=== PATIENT | male | born 1935 | race Caucasian/White ===

== ENCOUNTER 2016-09-05 12:21 | Inpatient (IN) | payer MEDICARE ==
[~2016-09-05] VITALS: Ht 185.4 cm; Wt 159.2 kg
[~2016-09-05 12:21] MED LIST: ALBU18HF INH; ARFO15VI NEB; ASCO250T2 PO; CHOL200024 PO; HYDR473S51 PO; OXYC-223 PO; PREG75CA PO; TIOT18CA INH; VIT1CAPS9 PO; VITA1TAB19 PO; albuterol NEB; magnesium PO; potassium PO; zinc PO
[2016-09-05] MEDS ORDERED: SODIUM CHLORIDE FLUSH 10ML SYR IVF ONE (14:30)
[2016-09-05] MEDS ORDERED: SODIUM CHLORIDE 0.9% 1,000ML IVBOLUS ONE (14:30)
[2016-09-05] MEDS ORDERED: ALBUTEROL/IPRATROPIUM 2.5MG/0.5MG, 3 ML NPPB ONE (14:30)
[2016-09-05] MEDS ORDERED: ALBUTEROL/IPRATROPIUM 2.5MG/0.5MG, 3 ML ONE (14:42)
[2016-09-05 14:51] LABS: ASPARTATE AMINO TRANSFERASE 57 U/L (15-37); BLOOD UREA NITROGEN 31 mg/dL (7-18)
[2016-09-05 14:57] LABS: IS PT STATUS REG ER OR PRE ER? YES
[2016-09-05] MEDS ORDERED: ASPIRIN 81 MG TABLET CHEW ONE (15:24)
[2016-09-05] MEDS ORDERED: ASPIRIN 81 MG TABLET CHEW PO ONE (15:30)
[2016-09-05] MEDS ORDERED: ALBU0.63 NEB (15:37)
[2016-09-05] MEDS ORDERED: DULO30CA2 PO (15:37)
[2016-09-05] MEDS ORDERED: POTA8CAP PO (15:40)
[2016-09-05] MEDS ORDERED: MAGN400T36 PO (15:40)
[2016-09-05] MEDS ORDERED: ALBUTEROL SULFATE 2.5 MG/3 ML NPPB SCH (16:30)
[2016-09-05] MEDS ORDERED: DOCUSATE 100 MG CAPSULE PO PRN (16:30)
[2016-09-05] MEDS ORDERED: TEMPLATE NON-FORMULARY MED. (Albuterol Sulfate (Albuterol Sulfate**) 1 VIAL) NEB PRN (16:30)
[2016-09-05] MEDS ORDERED: POLYETHYLENE GLYCOL 17 GM PACKET PO PRN (16:30)
[2016-09-05] MEDS ORDERED: BISACODYL 10 MG SUPP PR PRN (16:30)
[2016-09-05] MEDS ORDERED: MORPHINE SULFATE 4 MG/ML, 1ML IVPush PRN (16:30)
[2016-09-05] MEDS ORDERED: ONDANSETRON 2MG/ML, 2ML IVP PRN (16:30)
[2016-09-05] MEDS ORDERED: ACETAMINOPHEN 325 MG TABLET PO PRN (16:30)
[2016-09-05] MEDS ORDERED: HYDROcodone/APAP 5/325 TABLET PO PRN (16:30)
[2016-09-05] MEDS ORDERED: methylPREDNISolone SOD SUCC 125 MG/2 ML ONE (17:23)
[2016-09-05] MEDS ORDERED: HEPARIN 5,000 UNITS/ML, 1ML ONE (17:23)
[2016-09-05] MEDS ORDERED: CEFTRIAXONE PMX 1GM/50ML 50 ML ONE (17:24)
[2016-09-05] MEDS: methylPREDNISolone SOD SUCC 125 MG/2 ML IVPush SCH (17:31)
[2016-09-05] MEDS: HEPARIN 5,000 UNITS/ML, 1ML SQ SCH (17:31)
[2016-09-05] MEDS: CEFTRIAXONE PMX 1GM/50ML 50 ML IV SCH (17:32)
[2016-09-05] MEDS ORDERED: [UNRECOGNIZED DRUG - REMARK] MC PRN (19:00)
[2016-09-05 19:28] LABS: IS PT STATUS REG ER OR PRE ER? NO
[2016-09-05 20:00] VITALS: BP 153/93
[2016-09-05] MEDS: MAGNESIUM OXIDE 400 MG TABLET PO SCH (20:09)
[2016-09-05] MEDS: SODIUM CHLORIDE 0.9% 1,000 ML IV SCH (20:10)
[2016-09-05] MEDS: ALBUTEROL/IPRATROPIUM 2.5MG/0.5MG, 3 ML NPPB SCH (20:10)
[2016-09-05] MEDS: DOXYCYCLINE 100 MG in DEXTROSE 5% 250 ML IV SCH (20:10)
[2016-09-05] MEDS: POTASSIUM CHLORIDE 8 MEQ TABLET.ER PO SCH (20:10)
[2016-09-05] MEDS ORDERED: ARFORMOTEROL TARTRATE NEB SCH (21:00)
[2016-09-06 01:27] VITALS: BP 155/92
[2016-09-06] MEDS: methylPREDNISolone SOD SUCC 125 MG/2 ML IVPush SCH ×2 (02:02→09:15)
[2016-09-06] MEDS: HEPARIN 5,000 UNITS/ML, 1ML SQ SCH ×3 (02:02→17:23)
[2016-09-06 03:01] LABS: BLOOD UREA NITROGEN 34 mg/dL (7-18)
[2016-09-06 03:05] LABS: ASPARTATE AMINO TRANSFERASE 41 U/L (15-37)
[2016-09-06 03:15] LABS: IS PT STATUS REG ER OR PRE ER? NO
[2016-09-06 06:45] VITALS: BP 189/123
[2016-09-06] MEDS: ALBUTEROL/IPRATROPIUM 2.5MG/0.5MG, 3 ML NPPB SCH ×4 (07:00→20:10)
[2016-09-06 08:30] VITALS: BP 159/101
[2016-09-06] MEDS ORDERED: [UNRECOGNIZED DRUG - OTHER] PO SCH (09:00)
[2016-09-06] MEDS ORDERED: DULOXETINE 30 MG CAPSULE.DR PO SCH (09:00)
[2016-09-06] MEDS ORDERED: IPRATROPIUM 0.5 MG/2.5 ML INHA NPPB SCH (09:00)
[2016-09-06] MEDS: LABETALOL 5MG/ML, 20ML IV PRN (09:12)
[2016-09-06] MEDS: MAGNESIUM OXIDE 400 MG TABLET PO SCH ×2 (10:37→20:38)
[2016-09-06] MEDS: MULTIVITS,STRESS FORMULA 1 TABLET PO SCH (10:37)
[2016-09-06] MEDS: CHOLECALCIFEROL 1,000 UNIT TABLET PO SCH (10:37)
[2016-09-06] MEDS: POTASSIUM CHLORIDE 8 MEQ TABLET.ER PO SCH ×2 (10:38→20:38)
[2016-09-06] MEDS: DOXYCYCLINE 100 MG in DEXTROSE 5% 250 ML IV SCH ×2 (10:42→22:16)
[2016-09-06 12:20] VITALS: BP 147/85
[2016-09-06 12:24] LABS: PATH.CAST-FLAG NOT PRESENT; SPERM-FLAG NOT PRESENT; XTAL-FLAG NOT PRESENT; YLC-FLAG NOT PRESENT
[2016-09-06] MEDS: FLUTICASONE/VILANTEROL 100-25MCG/INH INH SCH ×2 (12:34→14:21)
[2016-09-06 12:51] LABS: SRC-FLAG NOT PRESENT
[2016-09-06] MEDS: SODIUM CHLORIDE 0.9% 1,000 ML IV SCH (17:23)
[2016-09-06] MEDS: CEFTRIAXONE PMX 1GM/50ML 50 ML IV SCH (17:23)
[2016-09-06] MEDS: LACTOBACILLUS CHEW TABLET PO SCH (20:38)
[2016-09-06] MEDS: DULOXETINE 30 MG CAPSULE.DR PO SCH (20:38)
[2016-09-06 20:55] VITALS: BP 134/78
[2016-09-07 01:00] VITALS: BP 182/106
[2016-09-07] MEDS: HEPARIN 5,000 UNITS/ML, 1ML SQ SCH ×3 (01:18→18:30)
[2016-09-07] MEDS: LABETALOL 5MG/ML, 20ML IV PRN (01:18)
[2016-09-07 02:15] VITALS: BP 158/67
[2016-09-07 02:22] VITALS: BP 158/67
[2016-09-07 06:03] LABS: BLOOD UREA NITROGEN 42 mg/dL (7-18)
[2016-09-07 06:09] LABS: ASPARTATE AMINO TRANSFERASE 128 U/L (15-37)
[2016-09-07] MEDS: ALBUTEROL/IPRATROPIUM 2.5MG/0.5MG, 3 ML NPPB SCH ×4 (06:37→19:45)
[2016-09-07 06:50] VITALS: BP 146/80
[2016-09-07] MEDS ORDERED: REGADENOSON 0.4 MG/5 ML SYRINGE ONE (08:21)
[2016-09-07] MEDS: FLUTICASONE/VILANTEROL 100-25MCG/INH INH SCH (10:22)
[2016-09-07] MEDS: CHOLECALCIFEROL 1,000 UNIT TABLET PO SCH (10:23)
[2016-09-07] MEDS: MAGNESIUM OXIDE 400 MG TABLET PO SCH ×2 (10:23→22:03)
[2016-09-07] MEDS: MULTIVITS,STRESS FORMULA 1 TABLET PO SCH (10:24)
[2016-09-07] MEDS: LACTOBACILLUS CHEW TABLET PO SCH ×3 (10:24→22:03)
[2016-09-07] MEDS: POTASSIUM CHLORIDE 8 MEQ TABLET.ER PO SCH ×2 (10:24→22:03)
[2016-09-07] MEDS: DOXYCYCLINE 100 MG in DEXTROSE 5% 250 ML IV SCH ×2 (10:39→22:03)
[2016-09-07 13:27] VITALS: BP 127/81
[2016-09-07] MEDS: CEFTRIAXONE PMX 1GM/50ML 50 ML IV SCH (17:37)
[2016-09-07 20:41] VITALS: BP 165/83
[2016-09-07] MEDS: DULOXETINE 30 MG CAPSULE.DR PO SCH (22:02)
[2016-09-08] MEDS: HEPARIN 5,000 UNITS/ML, 1ML SQ SCH ×2 (02:40→12:19)
[2016-09-08 02:55] VITALS: BP 158/98
[2016-09-08 06:32] LABS: ASPARTATE AMINO TRANSFERASE 43 U/L (15-37); BLOOD UREA NITROGEN 37 mg/dL (7-18)
[2016-09-08] MEDS: ALBUTEROL/IPRATROPIUM 2.5MG/0.5MG, 3 ML NPPB SCH ×3 (06:40→14:15)
[2016-09-08 07:39] VITALS: BP 160/94
[2016-09-08] MEDS: MULTIVITS,STRESS FORMULA 1 TABLET PO SCH (10:23)
[2016-09-08] MEDS: CHOLECALCIFEROL 1,000 UNIT TABLET PO SCH (10:23)
[2016-09-08] MEDS: FLUTICASONE/VILANTEROL 100-25MCG/INH INH SCH (10:23)
[2016-09-08] MEDS: LACTOBACILLUS CHEW TABLET PO SCH (10:24)
[2016-09-08] MEDS: MAGNESIUM OXIDE 400 MG TABLET PO SCH (10:24)
[2016-09-08] MEDS: POTASSIUM CHLORIDE 8 MEQ TABLET.ER PO SCH (10:24)
[2016-09-08] MEDS: DOXYCYCLINE 100 MG in DEXTROSE 5% 250 ML IV SCH (11:04)
[2016-09-08] MEDS ORDERED: CEFD300C37 PO (13:46)
[2016-09-08] MEDS ORDERED: DOXY100T PO (13:46)
[2016-09-08 13:51] VITALS: BP 143/93
[2016-09-08] MEDS ORDERED: PRED20TA PO (13:51)
== END 2016-09-08 16:50 | disposition home or self-care (01) | DRG 280 ==
LOC: ED 14:54 → EDIP 15:56 → 4WST 18:16 → DCLOUNGE 09-08 16:10
PROVIDERS: ADMIT Internal Medicine; ATTEND Internal Medicine
PROC: 5A09357 Assistance with Respiratory Ventilation, Less than 24 Consecutive Hours, Continuous Positive Airway Pressure (ICD-10-PCS; principal; 2016-09-06)
DX: I21.4 Non-ST elevation (NSTEMI) myocardial infarction (principal); N17.0 Acute kidney failure with tubular necrosis; J44.1 Chronic obstructive pulmonary disease with (acute) exacerbation; I50.40 Unspecified combined systolic (congestive) and diastolic (congestive) heart failure; I45.2 Bifascicular block; D72.829 Elevated white blood cell count, unspecified; G47.33 Obstructive sleep apnea (adult) (pediatric); I35.8 Other nonrheumatic aortic valve disorders; N18.9 Chronic kidney disease, unspecified; N40.1 Benign prostatic hyperplasia with lower urinary tract symptoms; Z96.653 Presence of artificial knee joint, bilateral; R33.8 Other retention of urine; Z87.891 Personal history of nicotine dependence; I25.2 Old myocardial infarction; Z99.81 Dependence on supplemental oxygen; Z90.49 Acquired absence of other specified parts of digestive tract
CPT/HCPCS: 36415; 71010; 74176; 76770; 78452; 80053; 81001; 82436; 82570; 83036; 83605; 83880; 84133; 84300; 84484; 85025; 85379; 87040; 87070; 87205; 93005; 93017; 93306; 94640; 94660; 96360; 96361; J0696; J1644; J2785; J7060; J7620; A9502; C9898; J2930; J7030; J7512

== ENCOUNTER 2016-09-21 21:23 | Inpatient (IN) | payer MEDICARE ==
[~2016-09-21] VITALS: Ht 185.4 cm; Wt 154.6 kg
[~2016-09-21 21:23] MED LIST changes: +ALBU0.63 NEB; +CEFD300C37 PO; +DOXY100T PO; +DULO30CA2 PO; +MAGN400T36 PO; +POTA8CAP PO; +PRED20TA PO
[2016-09-21] MEDS ORDERED: SODIUM CHLORIDE FLUSH 10ML SYR IVF ONE (21:30)
[2016-09-21] MEDS ORDERED: MORPHINE SULFATE 4 MG/ML, 1ML IVPush PRN (22:00)
[2016-09-21 22:07] LABS: BLOOD UREA NITROGEN 43 mg/dL (7-18)
[2016-09-21] MEDS ORDERED: PROPOFOL 10 MG/ML, 20ML ONE (22:18)
[2016-09-21] MEDS ORDERED: ONDANSETRON 2MG/ML, 2ML IVPush ONE (22:30)
[2016-09-21] MEDS ORDERED: ALBUTEROL/IPRATROPIUM 2.5MG/0.5MG, 3 ML NPPB ONE (22:30)
[2016-09-21] MEDS ORDERED: PROPOFOL 10 MG/ML, 20ML IVPush ONE (22:30)
[2016-09-21] MEDS ORDERED: ONDANSETRON 2MG/ML, 2ML ONE (22:37)
[2016-09-21] MEDS ORDERED: ALBUTEROL/IPRATROPIUM 2.5MG/0.5MG, 3 ML ONE (22:40)
[2016-09-21] MEDS ORDERED: BACITRACIN ZINC OINT 500U/GM, 0.9 GM ONE ×2 (23:04)
[2016-09-21] MEDS: SODIUM CHLORIDE FLUSH 3ML SYRINGE IVF SCH (23:30)
[2016-09-21] MEDS ORDERED: ONDANSETRON 2MG/ML, 2ML IVPush PRN (23:30)
[2016-09-21] MEDS: POTASSIUM CHLORIDE 8 MEQ TABLET.ER PO SCH (23:30)
[2016-09-21] MEDS: ASCORBIC ACID 500 MG TABLET PO SCH (23:30)
[2016-09-21] MEDS ORDERED: ACETAMINOPHEN 325 MG TABLET PO PRN (23:30)
[2016-09-21] MEDS ORDERED: BISACODYL 10 MG SUPP PR PRN (23:30)
[2016-09-21] MEDS ORDERED: TEMPLATE NON-FORMULARY MED. (Albuterol Sulfate (Albuterol Sulfate**) 1 VIAL) NEB PRN (23:30)
[2016-09-21] MEDS ORDERED: POLYETHYLENE GLYCOL 17 GM PACKET PO PRN (23:30)
[2016-09-21] MEDS ORDERED: morphine SULFATE 10 MG/ML, 1ML IVPush PRN (23:30)
[2016-09-21] MEDS: ARFORMOTEROL TARTRATE NEB SCH (23:30)
[2016-09-21] MEDS: MAGNESIUM OXIDE 400 MG TABLET PO SCH (23:30)
[2016-09-21] MEDS: TEMPLATE NON-FORMULARY MED. (Albuterol Sulfate (Ventolin Hfa) 2 PUFF(S)) INH SCH (23:30)
[2016-09-22 00:08] VITALS: BP 128/64
[2016-09-22 02:56] VITALS: BP 125/68
[2016-09-22] MEDS ORDERED: ALBUTEROL/IPRATROPIUM 2.5MG/0.5MG, 3 ML NPPB PRN ×2 (03:00→13:30)
[2016-09-22 04:59] LABS: BLOOD UREA NITROGEN 39 mg/dL (7-18)
[2016-09-22 05:05] LABS: ASPARTATE AMINO TRANSFERASE 60 U/L (15-37)
[2016-09-22 06:58] VITALS: BP 130/75
[2016-09-22] MEDS: ALBUTEROL/IPRATROPIUM 2.5MG/0.5MG, 3 ML NPPB SCH ×6 (07:00→20:00)
[2016-09-22] MEDS: DULOXETINE 30 MG CAPSULE.DR PO SCH (08:26)
[2016-09-22] MEDS: ARFORMOTEROL TARTRATE NEB SCH ×2 (08:26→20:50)
[2016-09-22] MEDS: SODIUM CHLORIDE FLUSH 3ML SYRINGE IVF SCH ×2 (08:26→20:50)
[2016-09-22] MEDS: POTASSIUM CHLORIDE 8 MEQ TABLET.ER PO SCH ×2 (08:26→20:50)
[2016-09-22] MEDS: SENNA/DOCUSATE TABLET PO SCH (08:27)
[2016-09-22] MEDS: ASCORBIC ACID 500 MG TABLET PO SCH ×2 (08:27→20:50)
[2016-09-22] MEDS: MULTIVITS,STRESS FORMULA 1 TABLET PO SCH (08:27)
[2016-09-22] MEDS: MAGNESIUM OXIDE 400 MG TABLET PO SCH ×2 (08:27→20:50)
[2016-09-22] MEDS: MULTIVITAMIN 1 TABLET PO SCH (08:27)
[2016-09-22] MEDS: CHOLECALCIFEROL 1,000 UNIT TABLET PO SCH (08:27)
[2016-09-22] MEDS ORDERED: IPRATROPIUM 0.5 MG/2.5 ML INHA HHN SCH (09:00)
[2016-09-22] MEDS ORDERED: BUPIVACAINE/PF 0.5% ONE (12:09)
[2016-09-22] MEDS ORDERED: MIDAZOLAM 1 MG/ML, 2ML ONE (12:15)
[2016-09-22] MEDS ORDERED: FENTANYL PF 250 MCG/5ML ONE (12:15)
[2016-09-22] MEDS ORDERED: DEXAMETHASONE 4 MG/ML, 1ML ONE (12:37)
[2016-09-22] MEDS ORDERED: CEFAZOLIN 1,000 MG ONE (12:37)
[2016-09-22] MEDS ORDERED: ONDANSETRON 2MG/ML, 2ML ONE (12:37)
[2016-09-22] MEDS ORDERED: PROPOFOL 10 MG/ML, 20ML ONE (12:37)
[2016-09-22] MEDS ORDERED: EPHEDRINE 50 MG/ML, 1ML IVPush PRN (13:30)
[2016-09-22] MEDS ORDERED: PROMETHAZINE 25 MG/ML, 1ML IV PRN (13:30)
[2016-09-22] MEDS ORDERED: hydrALAzine 20 MG/ML, 1ML IV PRN (13:30)
[2016-09-22] MEDS ORDERED: ONDANSETRON 2MG/ML, 2ML IVPush PRN (13:30)
[2016-09-22] MEDS ORDERED: LABETALOL 5MG/ML, 20ML IV PRN (13:30)
[2016-09-22] MEDS ORDERED: ACETAMINOPHEN 325 MG TABLET PO PRN (13:30)
[2016-09-22] MEDS ORDERED: HYDROmorphone 1 MG/ML, 1ML IV PRN (13:30)
[2016-09-22] MEDS ORDERED: FENTANYL PF 100 MCG/2ML IV PRN (13:30)
[2016-09-22] MEDS ORDERED: METOPROLOL 1 MG/ML, 5ML IV PRN (13:30)
[2016-09-22] MEDS ORDERED: ALBUTEROL SULFATE 2.5 MG/3 ML NPPB PRN (13:30)
[2016-09-22] MEDS ORDERED: OXYcodone 5 MG/5 ML ORAL.SOL UDC PO PRN (13:30)
[2016-09-22] MEDS ORDERED: FENTANYL PF 100 MCG/2ML ONE (14:18)
[2016-09-22] MEDS ORDERED: OXYcodone 5 MG/5 ML ORAL.SOL UDC ONE (14:18)
[2016-09-22] MEDS ORDERED: ACETAMINOPHEN 650 MG/20.3 ML UDC ONE (14:18)
[2016-09-22 15:12] VITALS: BP 128/77
[2016-09-22] MEDS ORDERED: OXYcodone/APAP 5/325MG TABLET PO PRN (17:30)
[2016-09-22 19:48] VITALS: BP 144/79
[2016-09-22] MEDS: CEFAZOLIN PMX 2GM/50ML 50 ML IVPB SCH (20:50)
[2016-09-22] MEDS: TEMPLATE NON-FORMULARY MED. (Albuterol Sulfate (Ventolin Hfa) 2 PUFF(S)) INH SCH (20:50)
[2016-09-23 02:08] VITALS: BP 145/86
[2016-09-23] MEDS: CEFAZOLIN PMX 2GM/50ML 50 ML IVPB SCH (04:49)
[2016-09-23 06:08] LABS: BLOOD UREA NITROGEN 31 mg/dL (7-18)
[2016-09-23 07:26] VITALS: BP 157/88
[2016-09-23] MEDS: ALBUTEROL/IPRATROPIUM 2.5MG/0.5MG, 3 ML NPPB SCH ×4 (07:35→19:37)
[2016-09-23] MEDS: SODIUM CHLORIDE FLUSH 3ML SYRINGE IVF SCH ×2 (07:51→21:20)
[2016-09-23] MEDS: DULOXETINE 30 MG CAPSULE.DR PO SCH (07:53)
[2016-09-23] MEDS: MULTIVITS,STRESS FORMULA 1 TABLET PO SCH (07:53)
[2016-09-23] MEDS: MULTIVITAMIN 1 TABLET PO SCH (07:53)
[2016-09-23] MEDS: POTASSIUM CHLORIDE 8 MEQ TABLET.ER PO SCH ×2 (07:53→21:18)
[2016-09-23] MEDS: ASCORBIC ACID 500 MG TABLET PO SCH ×2 (07:53→21:18)
[2016-09-23] MEDS: CHOLECALCIFEROL 1,000 UNIT TABLET PO SCH (07:53)
[2016-09-23] MEDS: MAGNESIUM OXIDE 400 MG TABLET PO SCH ×2 (07:53→21:18)
[2016-09-23] MEDS: SENNA/DOCUSATE TABLET PO SCH (07:53)
[2016-09-23] MEDS: ARFORMOTEROL TARTRATE NEB SCH ×2 (08:02→21:21)
[2016-09-23 14:34] VITALS: BP 138/69
[2016-09-23 20:00] VITALS: BP 135/70
[2016-09-23] MEDS: ENOXAPARIN 40 MG/0.4 ML SQ SCH (21:18)
[2016-09-23] MEDS: TEMPLATE NON-FORMULARY MED. (Albuterol Sulfate (Ventolin Hfa) 2 PUFF(S)) INH SCH (23:15)
[2016-09-24 01:21] VITALS: BP 141/87
[2016-09-24 06:48] VITALS: BP 153/94
[2016-09-24] MEDS: ALBUTEROL/IPRATROPIUM 2.5MG/0.5MG, 3 ML NPPB SCH ×4 (07:00→22:00)
[2016-09-24 07:08] LABS: BLOOD UREA NITROGEN 24 mg/dL (7-18)
[2016-09-24] MEDS: MULTIVITS,STRESS FORMULA 1 TABLET PO SCH (08:13)
[2016-09-24] MEDS: SENNA/DOCUSATE TABLET PO SCH (08:13)
[2016-09-24] MEDS: DULOXETINE 30 MG CAPSULE.DR PO SCH (08:13)
[2016-09-24] MEDS: ASCORBIC ACID 500 MG TABLET PO SCH ×2 (08:13→23:34)
[2016-09-24] MEDS: POTASSIUM CHLORIDE 8 MEQ TABLET.ER PO SCH ×2 (08:13→23:34)
[2016-09-24] MEDS: CHOLECALCIFEROL 1,000 UNIT TABLET PO SCH (08:13)
[2016-09-24] MEDS: MULTIVITAMIN 1 TABLET PO SCH (08:14)
[2016-09-24] MEDS: MAGNESIUM OXIDE 400 MG TABLET PO SCH ×2 (08:14→23:34)
[2016-09-24] MEDS: ARFORMOTEROL TARTRATE NEB SCH ×2 (08:14→23:33)
[2016-09-24] MEDS: SODIUM CHLORIDE FLUSH 3ML SYRINGE IVF SCH ×2 (08:14→23:34)
[2016-09-24] MEDS ORDERED: OXYC1TAB7 PO (15:01)
[2016-09-24] MEDS ORDERED: POLY17PO5 PO (15:01)
[2016-09-24 15:02] VITALS: BP 147/86
[2016-09-24 19:03] VITALS: BP 152/85
[2016-09-24] MEDS: ENOXAPARIN 40 MG/0.4 ML SQ SCH (23:34)
[2016-09-24] MEDS: TEMPLATE NON-FORMULARY MED. (Albuterol Sulfate (Ventolin Hfa) 2 PUFF(S)) INH SCH (23:35)
[2016-09-25 02:07] VITALS: BP_SYST 158; BP_SYST 169; BP_DIAS 105; BP_DIAS 96
[2016-09-25] MEDS ORDERED: CARVEDILOL 6.25 MG TABLET PO ONE (02:30)
[2016-09-25] MEDS ORDERED: CARVEDILOL 6.25 MG TABLET PO SCH (06:00)
[2016-09-25 06:07] VITALS: BP 167/98
[2016-09-25] MEDS: ALBUTEROL/IPRATROPIUM 2.5MG/0.5MG, 3 ML NPPB SCH ×2 (06:32→10:29)
[2016-09-25 07:35] VITALS: BP 139/75
[2016-09-25] MEDS: MULTIVITS,STRESS FORMULA 1 TABLET PO SCH (08:13)
[2016-09-25] MEDS: DULOXETINE 30 MG CAPSULE.DR PO SCH (08:14)
[2016-09-25] MEDS: POTASSIUM CHLORIDE 8 MEQ TABLET.ER PO SCH (08:14)
[2016-09-25] MEDS: MAGNESIUM OXIDE 400 MG TABLET PO SCH (08:14)
[2016-09-25] MEDS: SODIUM CHLORIDE FLUSH 3ML SYRINGE IVF SCH (08:14)
[2016-09-25] MEDS: MULTIVITAMIN 1 TABLET PO SCH (08:14)
[2016-09-25] MEDS: ARFORMOTEROL TARTRATE NEB SCH (08:14)
[2016-09-25] MEDS: SENNA/DOCUSATE TABLET PO SCH (08:14)
[2016-09-25] MEDS: CHOLECALCIFEROL 1,000 UNIT TABLET PO SCH (08:15)
[2016-09-25] MEDS: ASCORBIC ACID 500 MG TABLET PO SCH (08:16)
[2016-09-25] MEDS ORDERED: MAGNESIUM HYDROXIDE 8%, 30ML UDC PO ONE (10:00)
[2016-09-25] MEDS ORDERED: CARV6.2512 PO (12:15)
[2016-09-25] MEDS ORDERED: FURO-93 PO (12:15)
[2016-09-25] MEDS ORDERED: POTA10TA11 PO (12:15)
== END 2016-09-25 13:00 | DRG 492 ==
LOC: ED 23:09 → EDIP 23:10 → ED 23:21 → 4NOR 09-22 00:04
PROC: 0QSJ04Z Reposition Right Fibula with Internal Fixation Device, Open Approach (ICD-10-PCS; 2016-09-22)
PROC: 0QSG04Z Reposition Right Tibia with Internal Fixation Device, Open Approach (ICD-10-PCS; principal; 2016-09-22 12:00)
DX: S82.841A Displaced bimalleolar fracture of right lower leg, initial encounter for closed fracture (principal); N17.0 Acute kidney failure with tubular necrosis; J96.10 Chronic respiratory failure, unspecified whether with hypoxia or hypercapnia; I13.0 Hypertensive heart and chronic kidney disease with heart failure and stage 1 through stage 4 chronic kidney disease, or unspecified chronic kidney disease; I50.9 Heart failure, unspecified; D72.829 Elevated white blood cell count, unspecified; G47.33 Obstructive sleep apnea (adult) (pediatric); G62.9 Polyneuropathy, unspecified; I45.4 Nonspecific intraventricular block; I25.10 Atherosclerotic heart disease of native coronary artery without angina pectoris; N18.9 Chronic kidney disease, unspecified; N40.0 Benign prostatic hyperplasia without lower urinary tract symptoms; Z96.653 Presence of artificial knee joint, bilateral; W19.XXXA Unspecified fall, initial encounter; Z87.891 Personal history of nicotine dependence; Z99.81 Dependence on supplemental oxygen; Y93.89 Activity, other specified; Y92.89 Other specified places as the place of occurrence of the external cause; I25.2 Old myocardial infarction; Z90.49 Acquired absence of other specified parts of digestive tract; Z80.9 Family history of malignant neoplasm, unspecified; Z79.899 Other long term (current) drug therapy
CPT/HCPCS: 27840; 36415; 71010; 76000; 80048; 80053; 81001; 82040; 85025; 85610; 85730; 87086; 93005; 94640; 94660; 96374; 99152; 99153; C1713; J0690; J1100; J1650; J2250; J2405; J2704; J3010; J3490; J7620; J2270